=== PATIENT | female | born 1990 | race Caucasian/White ===

== ENCOUNTER 2020-02-23 18:26 | Emergency (ER) | payer SELFPAY ==
[~2020-02-23] VITALS: Ht 162.5 cm; Wt 116.1 kg
[~2020-02-23 18:26] MED LIST: IBP600T1 PO
[2020-02-23] MEDS ORDERED: TETANUS,DIPTH,PERTUSS P/F (BOOSTRIX) 0.5 ML VIAL IM ONE (19:15)
[2020-02-23] MEDS ORDERED: LIDOCAINE 1% INJ 20 ML 20 ML VIAL INJ ONE (19:45)
--- NOTE | 2020-02-23 20:02 | Diagnostic Imaging Report ---
INDICATION: Right hip pain. COMPARISON: None. EXAMINATION: Two views of the right hip were obtained. FINDINGS: No fracture or dislocation. Articular surfaces are normal. IMPRESSION: No fracture identified. Dictated by: Dictated on workstation # [id number]
--- NOTE | 2020-02-23 20:03 | Diagnostic Imaging Report ---
INDICATION: Right shoulder pain. COMPARISON: None. EXAMINATION: Three views of the right shoulder were obtained. FINDINGS: No fracture or dislocation. Articular surfaces are normal. Visualized clavicle and scapula are normal. IMPRESSION: Negative right shoulder. Dictated by: Dictated on workstation # [id number]
--- NOTE | 2020-02-23 20:04 | Diagnostic Imaging Report ---
INDICATION: Right elbow injury. COMPARISON: None. EXAMINATION: Three views of the right elbow were obtained. FINDINGS: No underlying fracture or dislocation. There is no joint effusion. A bandage is seen posterior to the olecranon process. There are some radiopaque densities within the bandage or on the skin. If there is an open wound, a foreign body is not excluded. IMPRESSION: No fracture or dislocation. Dictated by: Dictated on workstation # [id number]
--- NOTE | 2020-02-23 20:23 | ED Upper Extremity ---
General Chief Complaint: Trauma-Non Activation Stated Complaint: FALL - R ARM PAIN Nursing Triage Note: fall, R arm/R knee/ R side pain Nursing Sepsis Screen: No Definite Risk History of Present Illness Date Seen by Provider: Feb 23, 2020 Time Seen by Provider: 19:00 Initial Comments 30-year-old patient presents for right arm pain from her clavicle to her elbow. Laceration to her right elbow and pain to the right hip. She had just finished work and was getting out of a truck when she fell onto her right side. She denies any head injury or loss of consciousness. She is unsure of her last tetanus vaccine. Location Injury Occurred: after work Onset: just prior to arrival Severity: moderate Pain/Injury Location: right shoulder, right elbow Method of Injury: fell Modifying Factors: Improves With Rest Allergies and Home Medications Allergies Coded Allergies: No Known Drug Allergies (Unverified , 02/11/13) Home Medications Cephalexin 500 Mg Tablet, 500 MG PO QID Prescribed by: KAMRAN NICHOLSON on 02/23/202050 Ibuprofen 600 Mg Tab, 600 MG PO Q4H PRN, (Reported) Patient Home Medication List Home Medication List Reviewed: Yes Review of Systems Constitutional: no symptoms reported, see HPI Musculoskeletal: see HPI, joint pain (right shoulder and elbow) All Other Systems Reviewed Negative Unless Noted: Yes Past Dnrzuqe-Rqucrx-Ofppsj Hx Past Med/Social Hx: Reviewed Nursing Past Med/Soc Hx Patient Social History Alcohol Use: Denies Use Recreational Drug Use: No 2nd Hand Smoke Exposure: No Recent Foreign Travel: No Contact w/Someone Who Travel: No Recent Infectious Disease Expo: No Recent Hopitalizations: No Immunizations Up To Date Tetanus Booster (TDap): Less than 5yrs Date of Influenza Vaccine: Jan 29, 2013 Seasonal Allergies Seasonal Allergies: No Past Medical History Surgeries: No Respiratory: No Cardiac: No Neurological: No Reproductive Disorders: Yes (INCOMPLETE AB, RETAINED PRODUCTS) Genitourinary: No Gastrointestinal: No Musculoskeletal: No Endocrine: No HEENT: No Cancer: No Psychosocial: No Integumentary: No Blood Disorders: No Physical Exam Vital Signs Vital Signs - First Documented 02/23/20 02/23/20 18:50 20:58 Temp 36.3 Pulse 94 Resp 18 B/P (MAP) 120/84 (96) Pulse Ox 98 O2 Delivery Room Air Capillary Refill : Less Than 3 Seconds Height, Weight, BMI Height: '" Weight: 221lbs. oz. 100.378784pk; 43.00 BMI Method: General Appearance: WD/WN, no apparent distress HEENT: PERRL/EOMI, normal ENT inspection, TMs normal, pharynx normal Neck: non-tender, full range of motion, supple, normal inspection Cardiovascular: normal peripheral pulses, regular rate, rhythm Respiratory: chest non-tender, lungs clear, normal breath sounds Gastrointestinal: normal bowel sounds, non tender, soft Shoulder: normal inspection, bone tenderness (generalized), limited ROM (right, secondary to pain), soft tissue tenderness Elbow/Forearm: Right, abrasions, limited ROM, pain, soft tissue tenderness Wrist: Yes normal inspection, Yes non-tender, Yes no evidence of injury, Yes normal ROM Hand: normal inspection, non-tender, no evidence of injury, normal ROM, Right Neurologic/Tendon: normal sensation, normal motor functions, normal tendon functions Neurologic/Psychiatric: no motor/sensory deficits, alert, normal mood/affect, oriented x 3 Skin: normal color, warm/dry Procedures/Interventions Wound Location: Upper Extremities (right elbow) Wound Length (cm): 4 Wound's Depth, Shape: superficial, irregular, flap Wound Explored: contaminated Irrigated w/ Saline (ccs): 500 Anesthesia: 1% Lidocaine Volume Anesthetic (ccs): 6 Suture: Ethlion Suture Size: 5-0 Number of Sutures: 4 Sterile Dressing Applied?: Yes Progress Patient tolerated procedure well, wound well approximated, sterile dressing applied. Progress/Results/Core Measures Results/Orders My Orders Orders - KAMRAN NICHOLSON Dipht,Pertuss(Acell),Tet Adult (Boostrix (02/23/20 19:15) Tramadol Tablet (Ultram Tablet) (02/23/20 19:04) Shoulder, Right, 3 Views (02/23/20 19:04) Elbow, Right, 3 Views (02/23/20 19:04) Hip, Right, 2 Views (02/23/20 19:04) Lidocaine 1% Inj 20 Ml (Xylocaine 1% Inj (02/23/20 19:45) Rx-Cephalexin Capsule (Rx-Keflex Capsule (02/23/20 20:52) Medications Given in ED Current Medications Medications Dose Ordered Sig/Sonido Route Start Time Stop Time Status Last Admin Dose Admin Diphtheria/ Tetanus/Acell Pertussis 0.5 ml ONCE ONCE IM 02/23/20 19:15 02/23/20 19:16 DC 02/23/20 19:32 0.5 ML Lidocaine HCl 20 ml ONCE ONCE INJ 02/23/20 19:45 02/23/20 19:46 DC 02/23/20 20:17 20 ML Vital Signs/I&O 02/23/20 02/23/20 18:50 20:58 Temp 36.3 36.3 Pulse 94 90 Resp 18 18 B/P (MAP) 120/84 (96) 119/83 (96) Pulse Ox 98 O2 Delivery Room Air Blood Pressure Mean: 96 Diagnostic Imaging Diagonstic Imaging: Xray Plain Films/CT/US/NM/MRI: elbow Comments NAME: KATE GAMEZ [facility] REC#: [id number] PT STATUS: REG ER : 1990 PHYSICIAN: KAMRAN NICHOLSON ADMIT DATE: 02/23/20/ER Draft Date of Exam:02/23/20 ELBOW, RIGHT, 3 VIEWS INDICATION: Right elbow injury. COMPARISON: None. EXAMINATION: Three views of the right elbow were obtained. FINDINGS: No underlying fracture or dislocation. There is no joint effusion. A bandage is seen posterior to the olecranon process. There are some radiopaque densities within the bandage or on the skin. If there is an open wound, a foreign body is not excluded. IMPRESSION: No fracture or dislocation. Dictated on workstation # [id number] Dict: 02/23/201999 Trans: 02/23/[address] [place], [place] [address]E [id number] Interpreted by: MARIUSZ COTTON Electronically signed by: Reviewed: Reviewed by Me Diagonstic Imaging: Xray Plain Films/CT/US/NM/MRI: hip Comments NAME: KATE GAMEZ [facility] REC#: [id number] PT STATUS: REG ER : 1990 PHYSICIAN: KAMRAN NICHOLSON ADMIT DATE: 02/23/20/ER Signed Date of Exam:02/23/20 HIP, RIGHT, 2 VIEWS INDICATION: Right hip pain. COMPARISON: None. EXAMINATION: Two views of the right hip were obtained. FINDINGS: No fracture or dislocation. Articular surfaces are normal. IMPRESSION: No fracture identified. Dictated by: Dictated on workstation # [id number] Dict: 02/23/201958 Trans: 02/23/202002 PJE [id number] Interpreted by: MARIUSZ COTTON Electronically signed by: MARIUSZ COTTON 02/23/202002 Reviewed: Reviewed by Me Diagonstic Imaging: Xray Plain Films/CT/US/NM/MRI: other (shoulder) Comments NAME: KATE GAMEZ [facility] REC#: [id number] PT STATUS: REG ER : 1990 PHYSICIAN: KAMRAN NICHOLSON ADMIT DATE: 02/23/20/ER Signed Date of Exam:02/23/20 SHOULDER, RIGHT, 3 VIEWS INDICATION: Right shoulder pain. COMPARISON: None. EXAMINATION: Three views of the right shoulder were obtained. FINDINGS: No fracture or dislocation. Articular surfaces are normal. Visualized clavicle and scapula are normal. IMPRESSION: Negative right shoulder. Dictated by: Dictated on workstation # [id number] Dict: 02/23/201958 Trans: 02/23/202002 [id number] Interpreted by: MARIUSZ COTTON Electronically signed by: MARIUSZ COTTON 02/23/202002 Reviewed: Reviewed by Me Departure Impression Primary Impression: Fall Qualified Codes: W19.XXXA - Unspecified fall, initial encounter Additional Impressions: Laceration of elbow Qualified Codes: S51.011A - Laceration without foreign body of right elbow, initial encounter Contusion Qualified Codes: S40.021A - Contusion of right upper arm, initial encounter Disposition: 01 HOME, SELF-CARE Condition: Improved Departure-Patient Inst. Decision time for Depature: 20:30 Referrals: NO,LOCAL PHYSICIAN (PCP/Family) Primary Care Physician Patient Instructions: Contusion (DC), Laceration Repair With Stitches (DC) Add. Discharge Instructions: Keep the dressing dry and in place for 24 hours, you may re-inforce if needed. Do not submerge the wound in standing water (tub, pool, sink, rodriguez, etc). Leave sutures in place, return to Emergency Dept or your Primary Care Provider in 7-10 days for removal. You may shower, do not have water hit directly over wound. Clean with peroxide after shower, leave open to air when at home, cover with dressing or band-aid when out of the house. Watch for signs of infection: Redness, increased tenderness, warmth, discolored drainage or foul smelling drainage. Take antibiotic as prescribed. Alternate between ibuprofen 600 mg and Tylenol 650 g every 4 hours for pain. Ice to right shoulder, right elbow, and right hip for 20 minutes every 2 hours as needed for pain. Return to the emergency department for new, urgent health care problems. All discharge instructions reviewed with patient and/or family. Voiced understanding. Scripts Cephalexin (Cephalexin) 500 Mg Tablet 500 MG PO QID, #15 TAB 0 Refills Prov: KAMRAN NICHOLSON 02/23/20 Work/School Note: Work Release Form Date Seen in the Emergency Department: Feb 23, 2020 Return to Work: Feb 25, 2020 Restrictions: No Restrictions KAMRAN NICHOLSON Feb 23, 2020 20:23
[2020-02-23] MEDS ORDERED: CEPH500T PO (20:51)
[2020-02-23] MEDS ORDERED: RX-CEPHALEXIN (KEFLEX) 250 MG CAP PPK#4 PO STA (20:52)
[2020-02-23 20:58] VITALS: BP 119/83
== END 2020-02-23 20:58 | disposition home or self-care (01) ==
LOC: EDUNIT# 18:26 → ER 18:28
DX: S51.011A Laceration without foreign body of right elbow, initial encounter (principal); S40.021A Contusion of right upper arm, initial encounter; Z23 Encounter for immunization; W17.89XA Other fall from one level to another, initial encounter
CPT/HCPCS: 73030; 73080; 73502; 90715